=== PATIENT | female | born 1970 | race Caucasian/White ===

== ENCOUNTER 2018-12-05 03:30 | Emergency (ER) | payer OTHER ==
[~2018-12-05] VITALS: Ht 157.4 cm; Wt 59.0 kg
--- NOTE | ~2018-12-05 | EKG ---
[place], [place] ELECTROCARDIOGRAM REPORT NAME: KATINA XIAO UNIT #: [id number] ROOM: DOCTOR: EPIPHANY DRAFT REPORT BIRTHDATE: [birth year] [facility] Test Date: 2018-12-05 Test Time: 04:55:57 Pat Name: KATINA XIAO Department: Room: Gender: F Personnel Director: 52 : 1970 Requested By: VENKAT SAEED Order Number: [id number] Reading MD: Max Us MD Measurements Intervals [place] Rate: 60 P: 60 AR: 149 QRS: 51 QRSD: 96 T: 48 QT: 437 QTc: 437 Interpretive Statements Sinus rhythm Low voltage, extremity and precordial leads Probable anteroseptal infarct, old No previous ECG available for comparison Electronically Signed On 12-05-2018 18:15:27 PST by Max Us MD CM:EKGRPT:ELECTROCARDIOGRAM REPORT [id number] VENKAT SAEED MD EPIPHANY DRAFT REPORT VENKAT SAEED MD
--- NOTE | ~2018-12-05 | EKG ---
[place], [place] ELECTROCARDIOGRAM REPORT NAME: KATINA XIAO UNIT #: [id number] ROOM: DOCTOR: EPIPHANY DRAFT REPORT BIRTHDATE: [birth year] [facility] Test Date: 2018-12-05 Test Time: 07:11:48 Pat Name: KATINA XIAO Department: Room: Gender: F Rod Buster Helper: Danitza Reed : 1970 Requested By: VENKAT SAEED Order Number: [id number] Reading MD: Max Us MD Measurements Intervals [place] Rate: 61 P: 56 MT: 137 QRS: 45 QRSD: 95 T: 58 QT: 475 QTc: 479 Interpretive Statements Sinus rhythm Low voltage, extremity and precordial leads Borderline repolarization abnormality No change from earlier ECG this date Electronically Signed On 12-05-2018 18:18:47 PST by Max Us MD CM:EKGRPT:ELECTROCARDIOGRAM REPORT [id number] VENKAT SAEED MD EPIPHANY DRAFT REPORT VENKAT SAEED MD
[2018-12-05 03:46] LABS: BASO % 0.5 % (0.0-1.0); EOS # 0.1 10*3/uL (0.0-0.4); EOS % 1.7 % (1.0-4.0); HEMATOCRIT 39.2 % (37.0-47.0); HEMOGLOBIN 13.2 g/dl (12.0-16.0); LYMPH % 38.5 % (27.0-41.0); MEAN CELL VOLUME 89.7 fl (81.0-99.0); MEAN CORPUSCULAR HGB 30.2 pg (27.0-31.0); MEAN CORPUSCULAR HGB CONC 33.7 g/dl (33.0-37.0); MEAN PLATELET VOLUME 9.7 fl (9.6-12.3); MONO # 0.6 10*3/uL (0.1-1.0); MONO % 7.1 % (3.0-9.0); NEUT % 52.1 % (47.0-73.0); PLATELET COUNT AUTOMATED 225 10*3/uL (130-400); RED BLOOD COUNT 4.37 10*6/uL (4.10-5.10); RED CELL DISTRI WIDTH 12.9 % (0-14.5); WHITE BLOOD COUNT 7.8 10*3/uL (4.8-10.8)
[2018-12-05 04:04] LABS: ACT PARTIAL THROMBO TIME 25.1 SECONDS (20.8-31.5)
[2018-12-05 04:11] LABS: ALBUMIN 4.4 gm/dl (3.1-4.5); ALKALINE PHOSPHATASE 82 U/L (45-117); BUN 13 mg/dl (7-24); CHLORIDE 109 mmol/L (98-107); CREATININE 0.86 mg/dL (0.55-1.02); POTASSIUM 3.7 mmol/L (3.5-5.1); SGOT/AST 11 IU/L (3-35); SGPT/ALT 14 U/L (12-78); SODIUM 143 mmol/L (136-145)
[2018-12-05 04:17] LABS: TROPONIN I < 0.015 ng/ml (<0.045)
[2018-12-05 04:32] LABS: BILIRUBIN NEGATIVE (NEGATIVE); BLOOD NEGATIVE (NEGATIVE); CLARITY CLEAR (CLEAR); COLOR YELLOW (YELLOW); GLUCOSE NEGATIVE (NEGATIVE); KETONE NEGATIVE (NEGATIVE); LEUKO ESTERASE 1+ (NEGATIVE); NITRITE NEGATIVE (NEGATIVE); PH 6.5 (5.0-9.0); SPECIFIC GRAVITY <= 1.005 (1.005-1.030); UROBILINOGEN 0.2 E.U./dl (0.2-1.0)
[2018-12-05 04:56] LABS: BACTERIA TRACE; RBC 0-2 rbc/hpf (0-2)
[2018-12-05] MEDS ORDERED: PROTONIX40 MG PO (08:54)
== END 2018-12-05 09:07 | disposition left against medical advice (07) ==
LOC: ED 03:30
PROVIDERS: Emergency Medicine Emergency Medical Services
DX: K29.00 Acute gastritis without bleeding (principal); R07.9 Chest pain, unspecified; Z90.49 Acquired absence of other specified parts of digestive tract